=== PATIENT | female | born 1950 | race Two or more races ===

== ENCOUNTER → 2020-03-12 | Outpatient (CLI) | payer OTHER ==
[~2020-03-12] VITALS: Ht 152.4 cm; Wt 62.6 kg
== END | disposition home or self-care (01) ==
LOC: ECT 14:04
DX: F31.5 Bipolar disorder, current episode depressed, severe, with psychotic features (principal); E78.5 Hyperlipidemia, unspecified; K21.9 Gastro-esophageal reflux disease without esophagitis; Z86.711 Personal history of pulmonary embolism; I50.9 Heart failure, unspecified; I11.0 Hypertensive heart disease with heart failure; Z79.01 Long term (current) use of anticoagulants; Z79.899 Other long term (current) drug therapy

== ENCOUNTER 2020-03-14 05:49 | Outpatient (RCR) | payer OTHER ==
[~2020-03-14] VITALS: Ht 152.4 cm; Wt 62.6 kg
[2020-03-14] MEDS ORDERED: Ketorolac 30mg Inj ONE (05:50)
[2020-03-14] MEDS ORDERED: Methohexital Sodium Syr 100mg/10ml IVP ONE (05:50)
[2020-03-14] MEDS ORDERED: Succinylcholine 20mg/ml 10ml vial ONE (05:50)
[2020-03-14] MEDS ORDERED: Midazolam 2mg/2ml Inj ONE (05:50)
[2020-03-14] MEDS ORDERED: NS 500ML ONE (05:50)
[2020-03-14] MEDS ORDERED: Ketorolac 60mg Inj IM ONE (09:26)
[2020-03-14 09:27] VITALS: BP_SYST 122; BP_SYST 163; BP_DIAS 71; BP_DIAS 92
[2020-03-14 09:32] VITALS: BP 165/66
[2020-03-14 09:37] VITALS: BP 168/72
[2020-03-14 09:42] VITALS: BP 170/66
[2020-03-14 12:44] VITALS: BP 122/71
[2020-03-17] MEDS ORDERED: NS 500ML ONE (09:00)
[2020-03-17] MEDS ORDERED: Ketorolac 60mg Inj IM ONE (09:00)
[2020-03-17] MEDS ORDERED: Methohexital Sodium Syr 100mg/10ml IVP ONE (09:00)
[2020-03-17] MEDS ORDERED: Succinylcholine 20mg/ml 10ml vial ONE (09:00)
[2020-03-17 09:13] VITALS: BP 127/75
[2020-03-17] MEDS ORDERED: Lidocaine 2% 100mg/5ml Carp IV PRN (09:34)
[2020-03-17] MEDS ORDERED: Atropine Sulfate 0.4mg/ml inj IVP PRN (09:34)
[2020-03-17 09:35] VITALS: BP 131/78
[2020-03-17 09:40] VITALS: BP 130/91
[2020-03-17 09:45] VITALS: BP 157/62
[2020-03-17 09:50] VITALS: BP 153/63
[2020-03-19] MEDS ORDERED: NS 500ML ONE (06:00)
[2020-03-19] MEDS ORDERED: Ketorolac 30mg Inj ONE (06:00)
[2020-03-19] MEDS ORDERED: Succinylcholine 20mg/ml 10ml vial ONE (06:00)
[2020-03-19] MEDS ORDERED: Methohexital Sodium Syr 100mg/10ml IVP ONE (06:00)
[2020-03-19] MEDS ORDERED: Labetalol 5mg/ml 20ml vial IV ONE (06:00)
[2020-03-19 09:35] VITALS: BP 162/79
[2020-03-19] MEDS ORDERED: Atropine Sulfate 0.4mg/ml inj IVP PRN (09:54)
[2020-03-19] MEDS ORDERED: Lidocaine 2% 100mg/5ml Carp IV PRN (09:54)
[2020-03-19 09:55] VITALS: BP 159/83
[2020-03-19 10:00] VITALS: BP 165/67
[2020-03-19 10:05] VITALS: BP 167/54
[2020-03-19 10:10] VITALS: BP 165/63
[2020-03-21] MEDS ORDERED: Succinylcholine 20mg/ml 10ml vial ONE (06:00)
[2020-03-21] MEDS ORDERED: Ketorolac 30mg Inj ONE (06:00)
[2020-03-21] MEDS ORDERED: NS 500ML ONE (06:00)
[2020-03-21 09:07] VITALS: BP 157/69
[2020-03-21 09:22] VITALS: BP 145/63
[2020-03-21 09:27] VITALS: BP 159/75
[2020-03-21 09:32] VITALS: BP 173/80
[2020-03-21 09:37] VITALS: BP 163/81
[2020-03-24] MEDS ORDERED: Methohexital Sodium Syr 100mg/10ml IVP ONE (09:00)
[2020-03-24] MEDS ORDERED: Succinylcholine 20mg/ml 10ml vial ONE (09:00)
[2020-03-24] MEDS ORDERED: NS 500ML ONE (09:00)
[2020-03-24 09:27] VITALS: BP 157/89
[2020-03-24] MEDS ORDERED: Atropine Sulfate 0.4mg/ml inj IVP PRN (09:49)
[2020-03-24] MEDS ORDERED: Lidocaine 2% 100mg/5ml Carp IV PRN (09:49)
[2020-03-24 09:50] VITALS: BP 182/86
[2020-03-24 09:55] VITALS: BP 171/70
[2020-03-24 10:00] VITALS: BP 175/71
[2020-03-24 10:05] VITALS: BP 175/80
== END 2020-03-25 | disposition home or self-care (01) ==
LOC: ECT 05:49
DX: F31.5 Bipolar disorder, current episode depressed, severe, with psychotic features (principal); E78.5 Hyperlipidemia, unspecified; K21.9 Gastro-esophageal reflux disease without esophagitis; Z86.711 Personal history of pulmonary embolism; Z79.01 Long term (current) use of anticoagulants; K58.9 Irritable bowel syndrome, unspecified; M54.5 Low back pain; I11.0 Hypertensive heart disease with heart failure; I50.9 Heart failure, unspecified
CPT/HCPCS: 90870; J0330; J1885; J2250; J7040

== ENCOUNTER 2020-03-26 06:43 | Outpatient (RCR) | payer OTHER ==
[~2020-03-26] VITALS: Ht 152.4 cm; Wt 62.6 kg
[2020-03-26] MEDS ORDERED: Methohexital Sodium Syr 100mg/10ml IVP ONE (06:44)
[2020-03-26] MEDS ORDERED: Succinylcholine 20mg/ml 10ml vial ONE (06:44)
[2020-03-26] MEDS ORDERED: NS 500ML ONE (06:44)
[2020-03-26 09:25] VITALS: BP 155/80
[2020-03-26 09:43] VITALS: BP 151/76
[2020-03-26 09:48] VITALS: BP 171/54
[2020-03-26 09:53] VITALS: BP 155/98
[2020-03-26 09:58] VITALS: BP 140/54
[2020-03-31] MEDS ORDERED: Succinylcholine 20mg/ml 10ml vial ONE (06:00)
[2020-03-31] MEDS ORDERED: NS 500ML ONE (06:00)
[2020-03-31] MEDS ORDERED: Methohexital Sodium Syr 100mg/10ml IVP ONE (06:00)
[2020-03-31 08:29] VITALS: BP 156/92
[2020-03-31] MEDS ORDERED: Lidocaine 2% 100mg/5ml Carp IV PRN (08:44)
[2020-03-31] MEDS ORDERED: Atropine Sulfate 0.4mg/ml inj IVP PRN (08:44)
[2020-03-31 08:45] VITALS: BP 162/69
[2020-03-31 08:50] VITALS: BP 156/63
[2020-03-31 08:55] VITALS: BP 154/67
[2020-03-31 09:00] VITALS: BP 170/98
[2020-04-02] MEDS ORDERED: NS 500ML ONE (06:00)
[2020-04-02] MEDS ORDERED: Succinylcholine 20mg/ml 10ml vial ONE (06:00)
[2020-04-02] MEDS ORDERED: Methohexital Sodium Syr 100mg/10ml IVP ONE (06:00)
[2020-04-02 08:45] VITALS: BP 160/76
[2020-04-02 08:57] VITALS: BP 175/87
[2020-04-02 09:02] VITALS: BP 129/96
[2020-04-02 09:07] VITALS: BP 148/74
[2020-04-02 09:12] VITALS: BP 158/70
[2020-04-04] MEDS ORDERED: Succinylcholine 20mg/ml 10ml vial ONE (06:00)
[2020-04-04] MEDS ORDERED: Methohexital Sodium Syr 100mg/10ml IVP ONE (06:00)
[2020-04-04] MEDS ORDERED: NS 500ML ONE (06:00)
[2020-04-04 08:32] VITALS: BP 140/76
[2020-04-04 08:42] VITALS: BP 164/87
[2020-04-04 08:47] VITALS: BP 159/57
[2020-04-04 08:52] VITALS: BP 165/67
[2020-04-04 08:57] VITALS: BP 157/69
[2020-04-07] MEDS ORDERED: Methohexital Sodium Syr 100mg/10ml IVP ONE (07:00)
[2020-04-07] MEDS ORDERED: NS 500ML ONE (07:00)
[2020-04-07] MEDS ORDERED: Succinylcholine 20mg/ml 10ml vial ONE (07:00)
[2020-04-07 09:15] VITALS: BP 138/79
[2020-04-07] MEDS ORDERED: Lidocaine 2% 100mg/5ml Carp IV PRN (09:34)
[2020-04-07] MEDS ORDERED: Atropine Sulfate 0.4mg/ml inj IVP PRN (09:34)
[2020-04-07 09:35] VITALS: BP 177/82
[2020-04-07 09:40] VITALS: BP 171/75
[2020-04-07 09:45] VITALS: BP 170/94
[2020-04-07 09:50] VITALS: BP 161/84
[2020-04-09] MEDS ORDERED: Succinylcholine 20mg/ml 10ml vial ONE (09:00)
[2020-04-09] MEDS ORDERED: Methohexital Sodium Syr 100mg/10ml IVP ONE (09:00)
[2020-04-09] MEDS ORDERED: NS 500ML ONE (09:00)
[2020-04-09 09:06] VITALS: BP 142/70
[2020-04-09 09:18] VITALS: BP 162/90
[2020-04-09 09:23] VITALS: BP 155/63
[2020-04-09 09:28] VITALS: BP 152/69
[2020-04-09 09:33] VITALS: BP 150/69
[2020-04-11 08:44] VITALS: BP 148/83
[2020-04-11 08:56] VITALS: BP 175/86
[2020-04-11] MEDS ORDERED: Methohexital Sodium Syr 100mg/10ml IVP ONE (09:00)
[2020-04-11] MEDS ORDERED: Succinylcholine 20mg/ml 10ml vial ONE (09:00)
[2020-04-11] MEDS ORDERED: NS 500ML ONE (09:00)
[2020-04-11 09:01] VITALS: BP 168/88
[2020-04-11 09:06] VITALS: BP 170/74
[2020-04-11 09:11] VITALS: BP 164/77
[2020-04-14] MEDS ORDERED: NS 500ML ONE (06:00)
[2020-04-14] MEDS ORDERED: Succinylcholine 20mg/ml 10ml vial ONE (06:00)
[2020-04-14] MEDS ORDERED: Methohexital Sodium Syr 100mg/10ml IVP ONE (06:00)
[2020-04-14 08:53] VITALS: BP 130/84
[2020-04-14 09:07] VITALS: BP 169/63
[2020-04-14 09:12] VITALS: BP 154/61
[2020-04-14 09:17] VITALS: BP 132/67
[2020-04-14 09:22] VITALS: BP 157/72
[2020-04-18] VITALS (7 sets, daily range): BP systolic 153–180; BP diastolic 69–82
[2020-04-18] MEDS ORDERED: NS 500ML ONE (07:00)
[2020-04-18] MEDS ORDERED: Succinylcholine 20mg/ml 10ml vial ONE (07:00)
[2020-04-18] MEDS ORDERED: Methohexital Sodium Syr 100mg/10ml IVP ONE (07:00)
[2020-04-25] VITALS (7 sets, daily range): BP systolic 149–167; BP diastolic 60–88
[2020-04-25] MEDS ORDERED: NS 500ML ONE (06:00)
[2020-04-25] MEDS ORDERED: Succinylcholine 20mg/ml 10ml vial ONE (06:00)
[2020-04-25] MEDS ORDERED: Methohexital Sodium Syr 100mg/10ml IVP ONE (06:00)
== END 2020-04-25 | disposition home or self-care (01) ==
LOC: ECT 06:43
DX: F31.5 Bipolar disorder, current episode depressed, severe, with psychotic features (principal)
CPT/HCPCS: 90870; J0330; J2405; J7040

== ENCOUNTER 2020-05-09 06:48 | Outpatient (RCR) | payer OTHER ==
[2020-05-09] VITALS (7 sets, daily range): BP systolic 142–157; BP diastolic 51–85
[~2020-05-09] VITALS: Ht 152.4 cm; Wt 62.8 kg
[2020-05-09] MEDS ORDERED: NS 500ML ONE (07:00)
[2020-05-09] MEDS ORDERED: Methohexital Sodium Syr 100mg/10ml IVP ONE (07:00)
[2020-05-09] MEDS ORDERED: Succinylcholine 20mg/ml 10ml vial ONE (07:00)
== END 2020-05-26 | disposition home or self-care (01) ==
LOC: ECT 06:48
DX: F31.5 Bipolar disorder, current episode depressed, severe, with psychotic features (principal)
CPT/HCPCS: 90870; J0330; J7040

== ENCOUNTER 2020-05-28 05:59 | Outpatient (RCR) | payer MEDICARE, OTHER ==
[~2020-05-28] VITALS: Ht 152.4 cm; Wt 62.6 kg
[2020-05-28] VITALS (7 sets, daily range): BP systolic 139–163; BP diastolic 48–87
[2020-05-28] MEDS ORDERED: NS 500ML ONE (06:00)
[2020-05-28] MEDS ORDERED: Succinylcholine 20mg/ml 10ml vial ONE (06:00)
[2020-05-28] MEDS ORDERED: Methohexita Syr 100mg/10ml IVP ONE (06:00)
[2020-06-23] VITALS (7 sets, daily range): BP systolic 154–166; BP diastolic 58–99
[2020-06-23] MEDS ORDERED: Labetalol 5mg/ml 20ml vial IV ONE (09:00)
[2020-06-23] MEDS ORDERED: Succinylcholine 20mg/ml 10ml vial ONE (09:00)
[2020-06-23] MEDS ORDERED: NS 500ML ONE (09:00)
[2020-06-23] MEDS ORDERED: Methohexita Syr 100mg/10ml IVP ONE (09:00)
[2020-06-23] MEDS ORDERED: Atropine Sulfate 0.4mg/ml inj IVP PRN (10:19)
== END 2020-06-25 | disposition home or self-care (01) ==
LOC: ECT 05:59
DX: F31.5 Bipolar disorder, current episode depressed, severe, with psychotic features (principal)
CPT/HCPCS: 90870; J0330; J7040

== ENCOUNTER 2020-07-21 06:53 | Outpatient (RCR) | payer OTHER ==
[~2020-07-21] VITALS: Ht 152.4 cm; Wt 62.6 kg
[2020-07-21] VITALS (8 sets, daily range): BP systolic 143–176; BP diastolic 57–89
[~2020-07-21 06:53] MED LIST: Methohexital Sodium Syr 100mg/10ml IVP ONE; NS 500ML ONE; Succinylcholine 20mg/ml 10ml vial ONE
== END 2020-07-26 | disposition home or self-care (01) ==
LOC: ECT 06:53
DX: F31.5 Bipolar disorder, current episode depressed, severe, with psychotic features (principal)
CPT/HCPCS: 90870; J0330; J7040

== ENCOUNTER 2020-08-18 04:46 | Outpatient (RCR) | payer MEDICARE, OTHER ==
[~2020-08-18] VITALS: Ht 30.5 cm; Wt 0.5 kg
[2020-08-18] VITALS (7 sets, daily range): BP systolic 130–152; BP diastolic 54–95
[2020-08-18] MEDS ORDERED: Methohexita Syr 100mg/10ml IVP ONE (04:47)
[2020-08-18] MEDS ORDERED: NS 500ML ONE (04:47)
[2020-08-18] MEDS ORDERED: Succinylcholine 20mg/ml 10ml vial ONE (04:47)
== END 2020-08-25 | disposition home or self-care (01) ==
LOC: ECT 04:46
DX: F31.5 Bipolar disorder, current episode depressed, severe, with psychotic features (principal)
CPT/HCPCS: 90870; J0330; J7040

== ENCOUNTER 2020-09-15 05:25 | Outpatient (RCR) | payer OTHER ==
[2020-09-15] VITALS (7 sets, daily range): BP systolic 145–166; BP diastolic 67–109
[~2020-09-15] VITALS: Ht 152.4 cm; Wt 62.6 kg
[2020-09-15] MEDS ORDERED: NS 500ML ONE (06:00)
[2020-09-15] MEDS ORDERED: Methohexita Syr 100mg/10ml IVP ONE (06:00)
[2020-09-15] MEDS ORDERED: Labetalol 5mg/ml 20ml vial IV ONE (06:00)
[2020-09-15] MEDS ORDERED: Succinylcholine 20mg/ml 10ml vial ONE (06:00)
== END 2020-09-25 | disposition home or self-care (01) ==
LOC: ECT 05:25
DX: F31.5 Bipolar disorder, current episode depressed, severe, with psychotic features (principal)
CPT/HCPCS: 90870; J0330; J7040

== ENCOUNTER 2020-10-13 05:43 | Outpatient (RCR) | payer OTHER ==
[2020-09-15 10:31] VITALS: BP 166/82
== END 2020-10-26 | disposition home or self-care (01) ==
LOC: ECT 05:43
DX: Z53.9 Procedure and treatment not carried out, unspecified reason (principal)

== ENCOUNTER 2020-11-14 05:14 | Outpatient (RCR) | payer OTHER ==
[2020-11-14] VITALS (7 sets, daily range): BP systolic 176–210; BP diastolic 102–122
[~2020-11-14] VITALS: Ht 152.4 cm; Wt 62.6 kg
[2020-11-14] MEDS ORDERED: Succinylcholine 20mg/ml 10ml vial ONE (05:15)
[2020-11-14] MEDS ORDERED: Labetalol 5mg/ml 20ml vial IV ONE (05:15)
[2020-11-14] MEDS ORDERED: NS 500ML ONE (05:15)
[2020-11-14] MEDS ORDERED: Esmolol 100mg/10ml Inj ONE (05:15)
[2020-11-14] MEDS ORDERED: Lidocaine 2% 100mg/5ml Carp IV PRN (09:04)
[2020-11-14] MEDS ORDERED: Atropine Sulfate 0.4mg/ml inj IVP PRN (09:04)
[2020-11-17] VITALS (7 sets, daily range): BP systolic 179–195; BP diastolic 88–113
[2020-11-17] MEDS ORDERED: Methohexita Syr 100mg/10ml IVP ONE (06:00)
[2020-11-17] MEDS ORDERED: Labetalol 5mg/ml 20ml vial IV ONE (06:00)
[2020-11-17] MEDS ORDERED: NS 500ML ONE (06:00)
[2020-11-17] MEDS ORDERED: Succinylcholine 20mg/ml 10ml vial ONE (06:00)
[2020-11-19] VITALS (7 sets, daily range): BP systolic 183–195; BP diastolic 98–165
[2020-11-19] MEDS ORDERED: Succinylcholine 20mg/ml 10ml vial ONE (06:00)
[2020-11-19] MEDS ORDERED: Labetalol 5mg/ml 20ml vial IV ONE (06:00)
[2020-11-19] MEDS ORDERED: Methohexita Syr 100mg/10ml IVP ONE (06:00)
[2020-11-19] MEDS ORDERED: NS 500ML ONE (06:00)
[2020-11-21] VITALS (7 sets, daily range): BP systolic 153–193; BP diastolic 93–99
[2020-11-21] MEDS ORDERED: Methohexita Syr 100mg/10ml IVP ONE (06:00)
[2020-11-21] MEDS ORDERED: Labetalol 5mg/ml 20ml vial IV ONE (06:00)
[2020-11-21] MEDS ORDERED: Succinylcholine 20mg/ml 10ml vial ONE (06:00)
[2020-11-21] MEDS ORDERED: NS 500ML ONE (06:00)
== END 2020-11-23 | disposition home or self-care (01) ==
LOC: ECT 05:14
DX: F31.5 Bipolar disorder, current episode depressed, severe, with psychotic features (principal)
CPT/HCPCS: 90870; J0330; J7040